=== PATIENT | female | born 1980 | race Caucasian/White ===

== ENCOUNTER → 2019-05-09 | Outpatient (CLI) | payer OTHER ==
--- NOTE | 2019-05-09 22:26 | MR ---
EXAMINATION TYPE: MR angio head wo con DATE OF EXAM: 05/09/2019 COMPARISON: NONE HISTORY: Headaches with increased frequence TECHNIQUE: Time of flight images focusing on the [place] were performed without contrast.. 2-D and 3-D postprocessing imaging is performed an independent workstation and reviewed.. FINDINGS: There is hypoplastic or stenotic distal right vertebral artery. Left vertebral artery is pa tent to basilar artery. There are patent bilateral posterior communicating arteries. There is no sign ificant focal stenosis or aneurysmal change in the posterior circulation. 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 Distinct anterior communicating artery is not identified. No significant focal stenosis or aneurysmal change is present. IMPRESSION: No aneurysmal change at the level of the [place]ighini of [place].
--- NOTE | 2019-05-09 22:29 | MR ---
EXAMINATION TYPE: MR brain wo con DATE OF EXAM: 05/09/2019 COMPARISON: NONE HISTORY: Headaches with increased frequence TECHNIQUE: Multiplanar, multisequence imaging of the brain and brainstem is performed without IV cont rast. FINDINGS: Diffusion weighted images demonstrate no evidence of a recent infarct or other diffusion abnormality. There is no extraaxial fluid collection or significant white matter signal abnormality. The ventricu lar system and cisternal spaces are normal in size and appearance. The brain volume is age appropria te. Midline structures demonstrate normal morphology. The craniocervical junction appears within normal limits. Normal vascular flow voids are present. Incidental note is made of dominant left vertebral ar audrey. Moderate mucosal thickening involving the ethmoid sinuses bilaterally is present. Mild mucosal thickening inferior right maxillary sinus. Globes are intact bilaterally. IMPRESSION: Chronic paranasal sinus disease otherwise unremarkable study.
== END | disposition home or self-care (01) ==
LOC: RADMRIMAIN 17:42
PROVIDERS: ATTEND Family Medicine
DX: R51 Headache (principal)
CPT/HCPCS: 70544; 70551

== ENCOUNTER → 2024-08-03 | Outpatient (CLI) | payer OTHER ==
--- NOTE | 2024-08-03 09:59 | MM ---
Reason for Exam: Screening (asymptomatic). Patient History: Menarche at age 12. First Full-Term at age 31. Late child-bearing (after 30). Premenopausal. Mother had breast cancer, age 63. Risk Values: Rebecca 5 year model risk: 1.6%. NCI Lifetime model risk: 18.6%. Tissue Density: The breasts are heterogeneously dense, which may obscure small masses. Findings: Analyzed By CAD. There is no suspicious group of microcalcifications or new suspicious mass in either breast. Overall Assessment: Negative, BI-RAD 1 Management: Screening Mammogram of both breasts in 1 year. . Patient should continue monthly self-breast exams. A clinical breast exam by your physician is recommended on an annual basis. This exam should not preclude additional follow-up of suspicious palpable abnormalities. Note on Rebecca scores and lifetime risk: 1. A Rebecca score greater than 3% is considered moderate risk. If this is the case, consider specialist referral to assess eligibility for a risk reducing agent. 2. If overall lifetime risk for the development of breast cancer is 20% or higher, the patient may qualify for future screening with alternating mammogram and breast MRI. [facility], , 08/03/2024 9:56 AM. Electronically signed and approved by: Keenan Mays M.D. Radiologis
== END | disposition home or self-care (01) ==
LOC: RADMAMWWP 08:00
PROVIDERS: ATTEND Family Medicine
DX: Z12.31 Encounter for screening mammogram for malignant neoplasm of breast (principal); R92.333 Mammographic heterogeneous density, bilateral breasts; Z80.3 Family history of malignant neoplasm of breast
CPT/HCPCS: 77067